=== PATIENT | female | born 1955 | race Caucasian/White ===

== ENCOUNTER → 2017-02-23 17:18 | Outpatient (CLI) | payer BC ==
[2012-06-21 14:28] VITALS: BMI 23.4
== END | disposition home or self-care (01) ==
LOC: D.MAMMO 15:15
DX: Z12.31 Encounter for screening mammogram for malignant neoplasm of breast (principal)

== ENCOUNTER → 2017-04-15 07:35 | Outpatient (CLI) | payer BC ==
[2012-06-21 14:28] VITALS: BMI 23.4
== END | disposition home or self-care (01) ==
LOC: D.MRI 07:35 → D.ER 07:35 → EDSTATUS 09:30
DX: L72.9 Follicular cyst of the skin and subcutaneous tissue, unspecified (principal)

== ENCOUNTER → 2018-02-09 09:14 | Outpatient (CLI) | payer BC ==
[2012-06-21 14:28] VITALS: BMI 23.4
== END | disposition home or self-care (01) ==
LOC: D.MRI 09:14
DX: R51 Headache (principal)

== ENCOUNTER → 2018-03-08 05:09 | Outpatient (CLI) | payer BC ==
[2012-06-21 14:28] VITALS: BMI 23.4
== END | disposition home or self-care (01) ==
LOC: D.MAMMO 05:09
DX: Z12.31 Encounter for screening mammogram for malignant neoplasm of breast (principal)

== ENCOUNTER 2019-03-30 19:00 | Outpatient (CLI) | payer BC ==
[2012-06-21 14:28] VITALS: BMI 23.4
== END 2019-03-30 23:59 | disposition home or self-care (01) ==
LOC: D.MAMMO 19:00
PROVIDERS: ATTEND Family Medicine
DX: Z12.31 Encounter for screening mammogram for malignant neoplasm of breast (principal)

== ENCOUNTER → 2019-04-25 10:33 | Outpatient (CLI) | payer BC, MEDICARE ==
[2012-06-21 14:28] VITALS: BMI 23.4
[2019-04-25 11:26] LABS: BASOPHILS 0.2 % (0-2); EOSINOPHILS 1.4 % (0-7); HEMATOCRIT 39.9 % (36.0-48.0); HEMOGLOBIN 13.5 g/dL (12-16); IMMATURE GRANULOCYTES 0.2 % (0-5); LYMPHOCYTES 16.1 % (15-50); MCH 30.1 pg (26.0-34.0); MCHC 33.8 g/dL (31.0-37.0); MCV 89.1 fL (80.0-100.0); MONOCYTES 6.8 % (2-11); NEUTROPHILS 75.3 % (40-80); PLATELET COUNT 219 10x3/uL (130-400); RBC 4.48 10x6/uL (4.00-5.40); WBC 6.3 10x3/uL (4.8-10.8)
== END | disposition home or self-care (01) ==
LOC: D.CT 10:33
PROVIDERS: ATTEND Internal Medicine Gastroenterology
DX: R10.31 Right lower quadrant pain (principal)

== ENCOUNTER 2020-02-29 09:00 | Outpatient (CLI) | payer MEDICARE, BC ==
[2012-06-21 14:28] VITALS: BMI 23.4
== END 2020-02-29 10:00 | disposition home or self-care (01) ==
LOC: D.MAMMO 09:00
PROVIDERS: ATTEND Family Medicine
DX: Z12.31 Encounter for screening mammogram for malignant neoplasm of breast (principal)

== ENCOUNTER → 2021-02-26 13:00 | Outpatient (CLI) | payer MEDICARE, BC ==
[2012-06-21 14:28] VITALS: BMI 23.4
== END ==
LOC: D.MAMMO 13:00
PROVIDERS: ATTEND Family Medicine
DX: Z12.31 Encounter for screening mammogram for malignant neoplasm of breast (principal)